=== PATIENT | female | born 1975 | race Caucasian/White ===

== ENCOUNTER 2019-03-03 06:17 | Inpatient (IN) | payer OTHER ==
[~2019-03-03] VITALS: Ht 165.1 cm; Wt 64.4 kg
[2019-03-03] MEDS ORDERED: PRENATAL 19 TA1 EAC1 PO (06:47)
== END 2019-03-05 19:08 | disposition home or self-care (01) | DRG 807 ==
LOC: OB/GYN 06:17 → LDR 06:17 → OB/GYN 13:37
PROVIDERS: ADMIT Obstetrics & Gynecology
PROC: 10E0XZZ Delivery of Products of Conception, External Approach (ICD-10-PCS; principal; 2019-03-03)
PROC: 10907ZC Drainage of Amniotic Fluid, Therapeutic from Products of Conception, Via Natural or Artificial Opening (ICD-10-PCS; 2019-03-03)
PROC: 3E033VJ Introduction of Other Hormone into Peripheral Vein, Percutaneous Approach (ICD-10-PCS; 2019-03-03)
PROC: 4A1HXCZ Monitoring of Products of Conception, Cardiac Rate, External Approach (ICD-10-PCS; 2019-03-03)
DX: O80 Encounter for full-term uncomplicated delivery (principal); Z37.0 Single live birth; Z3A.39 39 weeks gestation of pregnancy